=== PATIENT | female | born 1935 | race Hispanic/Latino ===

== ENCOUNTER 2018-04-06 15:10 | Inpatient (IN) | payer MEDICARE, BC ==
[2018-04-06 15:53] VITALS: BMI 28.2
--- NOTE | 2018-04-06 17:04 | RAD ---
Date of service: 04/06/2018 HISTORY: ams complained of sob today COMPARISON: 01/27/2015 FINDINGS: LUNGS: No active pulmonary disease. PLEURA: No pleural effusion or pneumothorax. Nonspecific elevation of the right hemidiaphragm unchanged from prior examination. CARDIOVASCULAR: Normal. OSSEOUS STRUCTURES: No significant abnormalities. VISUALIZED UPPER ABDOMEN: Normal. OTHER FINDINGS: None. IMPRESSION: No active disease.
--- NOTE | 2018-04-06 17:04 | ED PDOC ---
Arrival/HPI - General Chief Complaint: Abdominal Pain Time Seen by Provider: 04/06/18 15:46 Historian: Patient - History of Present Illness Narrative History of Present Illness (Text): 04/06/18 16:02 82 year old female, with past medical history of Alzheimer's disease, presents to the Emergency Department accompanied by son complaining of vaginal cyst since 5 days. As per son, patient experienced an episode of shortness of breath once today with leaning over, which soon resolved spontaneously. Patient currently denies any shortness of breath. Additionally, patient reports sore throat at baseline improved with water intake. Patient denies any changes in voice or difficulty swallowing. Patient denies any fever, chills, night sweats, nausea, vomiting, diarrhea, abdominal pain, vaginal bleeding, vaginal discharge, neck pain, back pain, chest pain, headache, dizziness or any other complaints. Time/Duration: < week (2 days) Symptom Onset: Gradual Symptom Course: Unchanged Activities at Onset: Light Context: Home Past Medical History - Provider Review Nursing Documentation Reviewed: Yes - Infectious Disease Hx of Infectious Diseases: None - Tetanus Immunization Tetanus Immunization: Unknown - Cardiac Hx Cardiac Disorders: No - Pulmonary Hx Respiratory Disorders: No - Neurological Hx Neurological Disorder: Yes Hx Alzheimer's Disease: Yes - HEENT Hx HEENT Disorder: Yes (wears glasses) Other/Comment: has black tooth right lower molar pt sched for root canal january 2015 - Renal Hx Renal Disorder: No - Endocrine/Metabolic Hx Endocrine Disorders: Yes Hx Diabetes Mellitus Type 2: Yes Hx Hypothyroidism: Yes - Hematological/Oncological Hx Blood Disorders: No - Integumentary Hx Dermatological Disorder: Yes Other/Comment: pre skin cancer, buttocks slightly pink - Musculoskeletal/Rheumatological Hx Musculoskeletal Disorders: Yes Hx Falls: Yes - Gastrointestinal Hx Gastrointestinal Disorders: No - Genitourinary/Gynecological Hx Genitourinary Disorders: Yes Hx Incontinence: Yes (at times) - Psychiatric Hx Psychophysiologic Disorder: No Hx Substance Use: No - Surgical History Hx Cholecystectomy: Yes Hx Hysterectomy: Yes Other/Comment: nasal polyps - Anesthesia Hx Anesthesia Reactions: No Hx Malignant Hyperthermia: No - Suicidal Assessment Feels Threatened In Home Enviroment: No Family/Social History - Physician Review Nursing Documentation Reviewed: Yes Family/Social History: No Known Family HX, Unknown Family HX Smoking Status: Never Smoked Hx Alcohol Use: No Hx Substance Use: No Hx Substance Use Treatment: No Allergies/Home Meds Allergies/Adverse Reactions: Allergies No Known Allergies Allergy (Verified 04/06/18 15:58) Home Medications: Home Meds Medication Instructions Recorded Confirmed Memantine [Namenda] 10 mg PO BID 01/10/15 04/06/18 Esomeprazole Magnesium [Nexium] 40 mg PO DAILY 01/23/15 04/06/18 Review of Systems - Physician Review All systems were reviewed & negative as marked: Yes - Review of Systems Constitutional: absent: Fevers ENT: Sore Throat Respiratory: absent: SOB Cardiovascular: absent: Chest Pain Gastrointestinal: absent: Abdominal Pain, Diarrhea, Nausea, Vomiting Genitourinary Female: Other (Vaginal cyst). absent: Vaginal Bleeding, Vaginal Discharge Musculoskeletal: absent: Back Pain, Neck Pain Neurological: absent: Headache, Dizziness Physical Exam Vital Signs Reviewed: Yes Vital Signs Pulse Resp BP Pulse Ox 04/06/18 16:11 73 18 113/59 L 98 Temperature: Afebrile Blood Pressure: Normal Pulse: Regular Respiratory Rate: Normal Appearance: Positive for: Well-Appearing, Non-Toxic, Comfortable Pain Distress: None Mental Status: Positive for: other (Altered) - Systems Exam Head: Present: Atraumatic, Normocephalic Pupils: Present: PERRL Extroacular Muscles: Present: EOMI Conjunctiva: Present: Normal Mouth: Present: Moist Mucous Membranes Neck: Present: Normal Range of Motion Respiratory/Chest: Present: Clear to Auscultation, Good Air Exchange. No: Respiratory Distress, Accessory Muscle Use Cardiovascular: Present: Regular Rate and Rhythm, Normal S1, S2. No: Murmurs Abdomen: No: Tenderness, Distention, Peritoneal Signs Genitourinary/Pelvic Exam: Present: Other (fluctuant lesion to right vulva 2x2cm without eythema. TTP. No crepitus. ) Back: Present: Normal Inspection Upper Extremity: Present: Normal Inspection. No: Cyanosis, Edema Lower Extremity: Present: Normal Inspection. No: Edema Neurological: Present: GCS=15, CN II-XII Intact, Speech Normal, Motor Func Grossly Intact Skin: Present: Warm, Dry, Normal Color. No: Rashes Psychiatric: Present: Other (Altered, not oriented: baseline per son) Medical Decision Making ED Course and Treatment: 04/06/18 16:02 Impression: 82 year old female presents to the Emergency Department complaining of vaginal cyst vs abscess since 2 days. Differential Diagnosis included but are not limited to: Abscess vs Cyst vs UTI Plan: -- CT of Abdomen/Pelvis -- EKG -- Labs -- Chest X-ray -- Urinalysis -- Reassess and disposition Prior Visits: Notes and results from previous visits were reviewed. Progress Notes: Xray unremarkable. Ekg unremarkable. UTI with mild leukocytosis noted on labwork without Sepsis vitals. Given hx of Dementia- will admit to Dr. Cadet's service for UTI and possible delirium coin ciding with dementia. Throughout ER stay pt was noted to be agitated, at baseline agitation per son of chaya. There was no indication of meningeal signs or trauma. Surgery was consulted and per Dr. Cadet's request OBGYN for on- call OB was placed. Bedside US deemed R sided vulva lesion to be cyst vs abscess. No cobblestonening noted on lesion. Non-erythematous. Endorsed to Dr. Cadet Pending CT results, otherwise Pt stable. - RAD Interpretation Radiology Orders: 04/06/18 16:02 ABD & PELVIS IV CONTRAST ONLY [CT] Stat 04/06/18 16:27 CHEST PORTABLE [RAD] Stat - Scribe Statement The provider has reviewed the documentation as recorded by the Scribe Fide Goyal. All medical record entries made by the Scribe were at my direction and personally dictated by me. I have reviewed the chart and agree that the record accurately reflects my personal performance of the history, physical exam, medical decision making, and the department course for this patient. I have also personally directed, reviewed, and agree with the discharge instructions and disposition. Disposition/Present on Arrival - Present on Arrival Any Indicators Present on Arrival: No History of DVT/PE: No History of Uncontrolled Diabetes: No Urinary Catheter: No History of Decub. Ulcer: No History Surgical Site Infection Following: None - Disposition Have Diagnosis and Disposition been Completed?: Yes Diagnosis: UTI (urinary tract infection), Vulvar abscess Disposition: HOSPITALIZED Disposition Time: 18:00 Patient Problems: Current Active Problems Problem Status Onset UTI (urinary tract infection) Acute Vulvar abscess Acute Condition: GOOD
[2018-04-06] MEDS ORDERED: DiphenhydrAMINE 50 mg/ml Inj IVP STA (17:30)
[2018-04-06 17:39] LABS: ALB/GLOB RATIO 1.2 (1.1-1.8); ALBUMIN 3.7 g/dL (3.0-4.8); ALT/SGPT 17 U/L (7-56); AST/SGOT 28 U/L (14-36); BLOOD UREA NITROGEN 7 mg/dL (7-21); CALCIUM 9.5 mg/dL (8.4-10.5); GFR NON-AFRICAN AMERICAN 60
[2018-04-06 17:50] LABS: B-TYPE NATRIURETIC PEPTIDE 345 pg/mL (0-450); TROPONIN I < 0.01 ng/mL
[2018-04-06 17:57] LABS: URINE BILIRUBIN NEGATIVE (NEGATIVE); URINE BLOOD NEGATIVE (NEGATIVE); URINE GLUCOSE (UA) NEGATIVE (NEGATIVE); URINE LEUKOCYTE ESTERASE LARGE Leu/uL (NEGATIVE); URINE PROTEIN NEGATIVE mg/dL (<30 mg/dL); URINE UROBILINOGEN 0.2 E.U./dL (<1 E.U./dL)
[2018-04-06 17:59] LABS: BASO # 0.04 K/mm3 (0.0-2.0); BASO % 0.3 % (0.0-3.0); EOS # 0.8 (0.0-0.7); EOS % 5.8 % (1.5-5.0); GRAN # 10.7 (1.4-6.5); GRAN % 74.4 % (50.0-68.0); HEMOGLOBIN 13.8 g/dL (12.0-16.0); LYMPH # 1.7 (1.2-3.4); LYMPH % 11.5 % (22.0-35.0); MEAN CELL VOLUME 75.4 fl (80.0-105.0); MEAN CORPUSCULAR HEMOGLOBIN 25.7 pg (25.0-35.0); MEAN CORPUSCULAR HGB CONC 34.1 g/dl (31.0-37.0); MEAN PLATELET VOLUME 9.9 fl (7.0-11.0); MONO # 1.2 (0.1-0.6); RBC 5.37 10^6/uL (3.5-6.1); RED CELL DISTRIBUTION WIDTH 15.2 % (11.5-14.5); WHITE BLOOD COUNT 14.4 10^3/ul (4.5-11.0)
[2018-04-06] MEDS ORDERED: Iohexol 350 MG/100 ML VIAL ONE (18:00)
[2018-04-06 18:03] LABS: URINE APPEARANCE CLEAR (CLEAR); URINE COLOR YELLOW (YELLOW)
[2018-04-06 18:12] LABS: URINE AMORPHOUS SEDIMENT TRACE; URINE EPITHELIAL CELLS MANY /hpf (0-5); URINE WBC 15 - 20 /hpf (0-6)
--- NOTE | 2018-04-06 18:30 | CARD ---
APPROVED REPORT Date of service: 04/06/2018 EKG Measurement Heart [id number] <Conclusion> Sinus rhythm with 1st degree AV block Left axis deviation Left ventricular hypertrophy with QRS widening Cannot rule out Septal infarct, age undetermined Abnormal ECG
[2018-04-06] MEDS ORDERED: cefTRIAXone 1 gm 1 GM/100 ML BAG IVPB STA (19:18)
[2018-04-07 09:40] LABS: HEMOGLOBIN 13.8 g/dL (12.0-16.0); MEAN CELL VOLUME 76.1 fl (80.0-105.0); MEAN CORPUSCULAR HEMOGLOBIN 25.8 pg (25.0-35.0); MEAN CORPUSCULAR HGB CONC 33.9 g/dl (31.0-37.0); MEAN PLATELET VOLUME 9.7 fl (7.0-11.0); RBC 5.35 10^6/uL (3.5-6.1); RED CELL DISTRIBUTION WIDTH 15.3 % (11.5-14.5); WHITE BLOOD COUNT 16.2 10^3/ul (4.5-11.0)
[2018-04-07 09:42] LABS: BLOOD UREA NITROGEN 8 mg/dL (7-21); GFR NON-AFRICAN AMERICAN > 60
[2018-04-07] MEDS ORDERED: cefTRIAXone 1 gm 1 GM/100 ML BAG IVPB SCH (10:00)
--- NOTE | 2018-04-07 10:45 | CT ---
Date of service: 04/06/2018 PROCEDURE: CT Abdomen and Pelvis with contrast HISTORY: lower pelvic pain, cyst near vagina COMPARISON: 01/24/2015 TECHNIQUE: Contrast dose: 100 cc of Omni 350 Radiation dose: Total exam DLP = 1261 mGy-cm. This CT exam was performed using one or more of the following dose reduction techniques: Automated exposure control, adjustment of the mA and/or kV according to patient size, and/or use of iterative reconstruction technique. FINDINGS: LOWER THORAX: Unremarkable. LIVER: Unremarkable. No gross lesion or ductal dilatation. GALLBLADDER AND BILE DUCTS: Gallbladder removed PANCREAS: Atrophy and fatty replacement of the pancreas SPLEEN: Unremarkable. ADRENALS: Unremarkable. No mass. KIDNEYS AND URETERS: Unremarkable. No hydronephrosis. No solid mass. VASCULATURE: Unremarkable. No aortic aneurysm. BOWEL: Unremarkable. No obstruction. No gross mural thickening. Mild diverticulosis of the sigmoid colon APPENDIX: Normal appendix. PERITONEUM: Unremarkable. No free fluid. No free air. LYMPH NODES: Unremarkable. No enlarged lymph nodes. BLADDER: Unremarkable. REPRODUCTIVE: Hysterectomy BONES: Mild compression fracture of the inferior endplate of L4. Age uncertain OTHER FINDINGS: The report concurs with the preliminary [facility] report IMPRESSION: No acute intra-abdominal findings
[2018-04-07] MEDS: Sodium Chloride 0.9% 1,000 ML IV SCH (11:10)
[2018-04-07] MEDS: cefTRIAXone 1 gm 1 GM/100 ML BAG IVPB SCH (11:12)
[2018-04-07] MEDS ORDERED: cefTRIAXone 1 gm 1 GM/100 ML BAG IVPB ONE (18:26)
--- NOTE | 2018-04-08 00:07 | HP ---
HISTORY OF PRESENT ILLNESS: The patient is an 82-year-old with a history of Alzheimer's disease, who presents to the emergency room complaining of a vaginal lesion, possible abscess of several days' duration. There is no fever, no chills, no shortness of breath. No chest pain. The patient is admitted to the medical-surgical floor for further evaluation and workup. The patient has received Rocephin 1 g every 24 empirically and a FINANCIAL HEALTH COUNSELOR consultation has been called. PAST MEDICAL HISTORY: Includes type 2 diabetes mellitus, GERD and Alzheimer's disease. The patient also has degenerative joint disease and history of hypothyroidism. PAST SURGICAL HISTORY: The patient has no significant past surgical history. ALLERGIES: NO KNOWN DRUG ALLERGIES. CURRENT MEDICATIONS: Include Namenda 10 mg twice daily and Risperdal 0.25 mg at bedtime. SOCIAL HISTORY: The patient lives with his son. There is no history of tobacco or alcohol use. REVIEW OF SYSTEMS: The patient denies any chest pain, shortness of breath. No nausea, no vomiting, no diarrhea. No vaginal or rectal bleeding. PHYSICAL EXAMINATION: GENERAL: The patient is a well-developed, somewhat obese female in no acute distress. VITAL SIGNS: Temperature 97.6, blood pressure 130/78, pulse 97, respiratory rate 20. HEENT: Head is normocephalic, atraumatic. Pupils equal, round, reactive to light. Extraocular movements intact. NECK: Supple. No thyromegaly. No carotid bruit. No adenopathy. LUNGS: Clear. HEART: Regular rate and rhythm. ABDOMEN: Soft, nontender. Bowel sounds are normoactive. EXTREMITIES: Without cyanosis, clubbing or edema. NEUROLOGIC: The patient is awake and confused without focal sensory or motor deficits. SKIN: Warm and dry. PELVIC: Deferred to FINANCIAL HEALTH COUNSELOR LABORATORY DATA: WBC 16.2, hemoglobin 13.8, hematocrit 40.7. Sodium 132, potassium 4.2, chloride 96, CO2 of 29, BUN 8, creatinine 0.8, glucose 137. Chest x-ray shows no active disease. CT scan of the abdomen and pelvis was negative. IMPRESSION: 1. Possible vulvar abscess. 2. Type 2 diabetes mellitus. 3. Gastroesophageal reflux disease. 4. Alzheimer's disease. PLAN: The patient is admitted to the medical-surgical floor. We will obtain FINANCIAL HEALTH COUNSELOR consultation. The patient has been started on empiric IV antibiotics with Rocephin 1 g every 24 hours. Social work for discharge planning. NANCY Edwards MD
[2018-04-08 07:57] LABS: HEMOGLOBIN 14.2 g/dL (12.0-16.0); MEAN CELL VOLUME 75.8 fl (80.0-105.0); MEAN CORPUSCULAR HEMOGLOBIN 25.4 pg (25.0-35.0); MEAN CORPUSCULAR HGB CONC 33.5 g/dl (31.0-37.0); MEAN PLATELET VOLUME 9.6 fl (7.0-11.0); RBC 5.59 10^6/uL (3.5-6.1); RED CELL DISTRIBUTION WIDTH 15.3 % (11.5-14.5); WHITE BLOOD COUNT 13.8 10^3/ul (4.5-11.0)
[2018-04-08 08:08] LABS: ALB/GLOB RATIO 1.1 (1.1-1.8); ALBUMIN 3.8 g/dL (3.0-4.8); ALT/SGPT 22 U/L (7-56); AST/SGOT 27 U/L (14-36); BLOOD UREA NITROGEN 11 mg/dL (7-21); CALCIUM 9.2 mg/dL (8.4-10.5); GFR NON-AFRICAN AMERICAN > 60
--- NOTE | 2018-04-08 08:38 | CP.PCM.CON ---
<Tressa Gruber - Last Filed: 04/08/18 13:38> History of Present Illness - History of Present Illness History of Present Illness: PGY-3 Resident ID consult note for Dr. Kessler. Reason for consult: Leukocytosis Patient is an 82 y/o female with PMHx of DM, GERD, Alzheimer, hypothyroidism, and DJD who was brought in by her son due growth around the right vulva. Patient is severely demented and confused, thus history was obtained from her son. As per son, he first noticed the lesion a week ago, though it was a pimple. Patient's daughter whom is an APPLIED STATISTICIAN was concerned the lesion might be an abscess thus contacted PMD whom suggested to bring patient to the ED. Otherwise no fever, or chills, no nausea, vomiting or diarrhea. PMhx: DM, GERD, Alzheimer, hypothyroidism, and DJD, PSHx: hysterectomy, cholecystectomy FMHx: non contributory Social: denies alcohol, tobacco, and illicit drug Allergy: nkda Home meds: as per chart. Review of Systems - Review of Systems Systems not reviewed;Unavailable: Dementia Past Patient History - Infectious Disease Hx of Infectious Diseases: None - Tetanus Immunizations Tetanus Immunization: Unknown - Past Social History Smoking Status: Never Smoked Alcohol: None Drugs: Denies Home Situation {Lives}: With Family - CARDIAC Hx Cardiac Disorders: No - PULMONARY Hx Respiratory Disorders: No - NEUROLOGICAL Hx Neurological Disorder: Yes Hx Alzheimer's Disease: Yes - HEENT Hx HEENT Problems: Yes (wears glasses) Other/Comment: has black tooth right lower molar pt sched for root canal january 2015 - RENAL Hx Chronic Kidney Disease: No - ENDOCRINE/METABOLIC Hx Diabetes Mellitus Type 2: Yes - HEMATOLOGICAL/ONCOLOGICAL Hx Blood Disorders: No - INTEGUMENTARY Hx Dermatological Problems: Yes Other/Comment: pre skin cancer, buttocks slightly pink - MUSCULOSKELETAL/RHEUMATOLOGICAL Hx Musculoskeletal Disorders: Yes Hx Falls: Yes - GASTROINTESTINAL Hx Gastrointestinal Disorders: No - GENITOURINARY/GYNECOLOGICAL Hx Genitourinary Disorders: Yes Hx Incontinence: Yes (at times) - PSYCHIATRIC Hx Psychophysiologic Disorder: No Hx Substance Use: No - SURGICAL HISTORY Hx Cholecystectomy: Yes Hx Hysterectomy: Yes Other/Comment: nasal polyps - ANESTHESIA Hx Anesthesia Reactions: No Hx Malignant Hyperthermia: No Meds Allergies/Adverse Reactions: Allergies Allergy/AdvReac Type Severity Reaction Status Date / Time No Known Allergies Allergy Verified 04/06/18 15:58 - Medications Medications: Current Medications Sodium Chloride (Sodium Chloride 0.9%) 1,000 mls @ 80 mls/hr IV .[id number] [facility] Last Admin: 04/07/18 11:10 Dose: 80 mls/hr Ceftriaxone Sodium (Rocephin 1 Gram Ivpb) 1 gm in 100 mls @ 100 mls/hr IVPB DAILY [facility]; Protocol Last Admin: 04/07/18 11:12 Dose: 100 mls/hr Lorazepam (Ativan) 0.5 mg IVP Q6H PRN; Protocol PRN Reason: Anxiety Last Admin: 04/07/18 20:48 Dose: 0.5 mg Memantine (Namenda) 10 mg PO BID [facility] Last Admin: 04/07/18 17:03 Dose: 10 mg Risperidone (Risperdal Tab) 0.25 mg PO BID [facility]; Protocol Last Admin: 04/07/18 17:04 Dose: 0.25 mg Physical Exam - Constitutional Appears: No Acute Distress, Confused, Chronically Ill - Head Exam Head Exam: ATRAUMATIC, NORMAL INSPECTION, NORMOCEPHALIC - Eye Exam Eye Exam: Normal appearance - ENT Exam ENT Exam: Mucous Membranes Moist - Neck Exam Neck exam: Positive for: Normal Inspection - Respiratory Exam Respiratory Exam: Clear to Auscultation Bilateral, NORMAL BREATHING PATTERN. absent: Rales, Rhonchi, Wheezes, Respiratory Distress, Stridor - Cardiovascular Exam Cardiovascular Exam: REGULAR RHYTHM, +S1, +S2. absent: Systolic Murmur - GI/Abdominal Exam GI & Abdominal Exam: Normal Bowel Sounds, Soft. absent: Distended, Firm, Guarding, Rebound, Rigid, Tenderness - Extremities Exam Extremities exam: Positive for: normal inspection - Back Exam Back exam: absent: tenderness - Neurological Exam Neurological exam: Alert, Oriented x3 - Psychiatric Exam Psychiatric exam: Agitated - Skin Skin Exam: Warm Additional comments: Right vulvar with non fluctuant mass like lesion, no edema. No erythema noted. Results - Vital Signs Recent Vital Signs: Last Vital Signs Temp 97.8 F 04/07/18 22:25 Pulse 96 H 04/07/18 22:25 Resp 20 04/07/18 22:25 BP 144/69 04/07/18 22:25 Pulse Ox 97 04/07/18 22:25 - Labs Result Diagrams: 04/08/18 07:15 04/08/18 07:15 Labs: Laboratory Results - last 24 hr 04/07/18 04/07/18 04/07/18 09:20 09:20 10:49 WBC 16.2 H RBC 5.35 Hgb 13.8 Hct 40.7 MCV 76.1 L MCH 25.8 MCHC 33.9 RDW 15.3 H Plt Count 295 MPV 9.7 Sodium 132 Potassium 4.2 Chloride 96 L Carbon Dioxide 29 Anion Gap 12 BUN 8 Creatinine 0.8 Est GFR ( Amer) > 60 Est GFR (Non-Af Amer) > 60 POC Glucose (mg/dL) 137 H Random Glucose 122 H Calcium 9.0 Total Bilirubin AST ALT Alkaline Phosphatase Total Protein Albumin Globulin Albumin/Globulin Ratio 04/08/18 04/08/18 07:15 07:15 WBC 13.8 H RBC 5.59 Hgb 14.2 Hct 42.4 MCV 75.8 L MCH 25.4 MCHC 33.5 RDW 15.3 H Plt Count 303 MPV 9.6 Sodium 135 Potassium 3.9 Chloride 98 Carbon Dioxide 28 Anion Gap 13 BUN 11 Creatinine 0.7 Est GFR ( Amer) > 60 Est GFR (Non-Af Amer) > 60 POC Glucose (mg/dL) Random Glucose 133 H Calcium 9.2 Total Bilirubin 0.8 AST 27 ALT 22 Alkaline Phosphatase 83 Total Protein 7.2 Albumin 3.8 Globulin 3.4 Albumin/Globulin Ratio 1.1 Assessment & Plan - Assessment and Plan (Free Text) Assessment: SIRS Right valvular growth likely bartholin gland cyst, r/o an abscess UA with UTI, however patient is incontinent, and bed bound DM, GERD, Alzheimer, hypothyroidism, DJD, hysterectomy, cholecystectomy Plan: Leukocytosis trending down, afebrile, and pt was tachy. Will continue with Rocephin and add vanco 1 gm q12. Follow up with urine and blood cultures. Work Ticket Distributor evaluation. Continue with the rest of the medical management as per PMD. Patient seen, examined and case discussed with Dr. Kessler. - Date & Time Date: 04/08/18 Time: 10:30 <Matt Kessler - Last Filed: 04/08/18 20:11> Meds - Medications Medications: Current Medications Sodium Chloride (Sodium Chloride 0.9%) 1,000 mls @ 80 mls/hr IV .[id number] [facility] Last Admin: 04/07/18 11:10 Dose: 80 mls/hr Ceftriaxone Sodium (Rocephin 1 Gram Ivpb) 1 gm in 100 mls @ 100 mls/hr IVPB DAILY [facility]; Protocol Last Admin: 04/08/18 16:15 Dose: 100 mls/hr Vancomycin HCl (Vancomycin 1gm) 1 gm in 250 mls @ 167 mls/hr IVPB Q12H [facility]; Protocol Last Admin: 04/08/18 14:06 Dose: 167 mls/hr Lorazepam (Ativan) 0.5 mg IVP Q6H PRN; Protocol PRN Reason: Anxiety Last Admin: 04/08/18 17:53 Dose: 0.5 mg Memantine (Namenda) 10 mg PO BID [facility] Last Admin: 04/08/18 17:53 Dose: 10 mg Risperidone (Risperdal Tab) 0.25 mg PO BID [facility]; Protocol Last Admin: 04/08/18 17:52 Dose: 0.25 mg Risperidone (Risperdal Tab) 0.25 mg PO HS [facility]; Protocol Results - Vital Signs Recent Vital Signs: Last Vital Signs Temp 97.5 F L 04/08/18 14:00 Pulse 87 04/08/18 14:00 Resp 20 04/08/18 14:00 BP 145/86 04/08/18 14:00 Pulse Ox 97 04/08/18 14:00 - Labs Result Diagrams: 04/08/18 07:15 04/08/18 07:15 Labs: Laboratory Results - last 24 hr 04/08/18 04/08/18 07:15 07:15 WBC 13.8 H RBC 5.59 Hgb 14.2 Hct 42.4 MCV 75.8 L MCH 25.4 MCHC 33.5 RDW 15.3 H Plt Count 303 MPV 9.6 Sodium 135 Potassium 3.9 Chloride 98 Carbon Dioxide 28 Anion Gap 13 BUN 11 Creatinine 0.7 Est GFR ( Amer) > 60 Est GFR (Non-Af Amer) > 60 Random Glucose 133 H Calcium 9.2 Total Bilirubin 0.8 AST 27 ALT 22 Alkaline Phosphatase 83 Total Protein 7.2 Albumin 3.8 Globulin 3.4 Albumin/Globulin Ratio 1.1 Assessment & Plan - Assessment and Plan (Free Text) Plan: Infectious Diseases Attending Physician Addendum Patient seen, examined, discussed with medical researcher. I have reviewed the pertinent clinical information. I agree with the above findings, assessment and plan and in addition, patient with probable vulvar abscess/infected Bartholin gland's cyst. Follow up Work Ticket Distributor evaluation and plans. We have started the patient on Vancomycin and Rocephin.
--- NOTE | 2018-04-08 09:28 | CP.PCM.PN ---
Subjective - Date & Time of Evaluation Date of Evaluation: 04/08/18 Time of Evaluation: 09:15 - Subjective Subjective: agitated, confused Objective - Vital Signs/Intake and Output Vital Signs (last 24 hours): Temp Pulse Resp BP Pulse Ox 98.2 F 96 H 20 139/88 95 04/08/18 06:00 04/08/18 06:00 04/08/18 06:00 04/08/18 06:00 04/08/18 06:00 Intake and Output: 04/08/18 04/08/18 06:59 18:59 Intake Total 1200 Balance 1200 - Medications Medications: Current Medications Sodium Chloride (Sodium Chloride 0.9%) 1,000 mls @ 80 mls/hr IV .[id number] [facility] Last Admin: 04/07/18 11:10 Dose: 80 mls/hr Ceftriaxone Sodium (Rocephin 1 Gram Ivpb) 1 gm in 100 mls @ 100 mls/hr IVPB DAILY [facility]; Protocol Last Admin: 04/07/18 11:12 Dose: 100 mls/hr Lorazepam (Ativan) 1 mg IVP Q6H PRN; Protocol PRN Reason: Anxiety Memantine (Namenda) 10 mg PO BID [facility] Last Admin: 04/07/18 17:03 Dose: 10 mg Risperidone (Risperdal Tab) 0.25 mg PO BID [facility]; Protocol Last Admin: 04/07/18 17:04 Dose: 0.25 mg - Labs Labs: 04/08/18 07:15 04/08/18 07:15 - Respiratory Exam Respiratory Exam: Clear to Ausculation Bilateral, NORMAL BREATHING PATTERN - Cardiovascular Exam Cardiovascular Exam: REGULAR RHYTHM - GI/Abdominal Exam GI & Abdominal Exam: Soft, Normal Bowel Sounds - Extremities Exam Extremities Exam: Normal Inspection - Neurological Exam Neurological Exam: Altered - Psychiatric Exam Psychiatric exam: Agitated - Skin Skin Exam: Dry, Warm Assessment and Plan (1) Vulvar abscess Status: Acute (2) Alzheimer's dementia Status: Chronic - Assessment and Plan (Free Text) Plan: continue IV Abx, 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
--- NOTE | 2018-04-08 13:08 | CP.PCM.CON ---
History of Present Illness - History of Present Illness History of Present Illness: 82-year-old female with history of dementia brought to emergency department yesterday due to 1 week history of patient's son noticing a cyst on vulva. Due to patient's cognitive capacity at this time, it is difficult for patient to co mmunicate her symptoms. Due to this, patient's son brought her to hospital for evaluation. Past Patient History - Infectious Disease Hx of Infectious Diseases: None - Tetanus Immunizations Tetanus Immunization: Unknown - Past Social History Smoking Status: Never Smoked - CARDIAC Hx Cardiac Disorders: No - PULMONARY Hx Respiratory Disorders: No - NEUROLOGICAL Hx Neurological Disorder: Yes Hx Alzheimer's Disease: Yes - HEENT Hx HEENT Problems: Yes (wears glasses) Other/Comment: has black tooth right lower molar pt sched for root canal january 2015 - RENAL Hx Chronic Kidney Disease: No - ENDOCRINE/METABOLIC Hx Diabetes Mellitus Type 2: Yes - HEMATOLOGICAL/ONCOLOGICAL Hx Blood Disorders: No - INTEGUMENTARY Hx Dermatological Problems: Yes Other/Comment: pre skin cancer, buttocks slightly pink - MUSCULOSKELETAL/RHEUMATOLOGICAL Hx Musculoskeletal Disorders: Yes Hx Falls: Yes - GASTROINTESTINAL Hx Gastrointestinal Disorders: No - GENITOURINARY/GYNECOLOGICAL Hx Genitourinary Disorders: Yes Hx Incontinence: Yes (at times) - PSYCHIATRIC Hx Psychophysiologic Disorder: No Hx Substance Use: No - SURGICAL HISTORY Hx Cholecystectomy: Yes Hx Hysterectomy: Yes Other/Comment: nasal polyps - ANESTHESIA Hx Anesthesia Reactions: No Hx Malignant Hyperthermia: No Meds Allergies/Adverse Reactions: Allergies Allergy/AdvReac Type Severity Reaction Status Date / Time No Known Allergies Allergy Verified 04/06/18 15:58 - Medications Medications: Current Medications Sodium Chloride (Sodium Chloride 0.9%) 1,000 mls @ 80 mls/hr IV .[id number] [facility] Last Admin: 04/07/18 11:10 Dose: 80 mls/hr Ceftriaxone Sodium (Rocephin 1 Gram Ivpb) 1 gm in 100 mls @ 100 mls/hr IVPB DAILY [facility]; Protocol Last Admin: 04/07/18 11:12 Dose: 100 mls/hr Vancomycin HCl (Vancomycin 1gm) 1 gm in 250 mls @ 167 mls/hr IVPB Q12H [facility]; Protocol Lorazepam (Ativan) 1 mg IVP Q6H PRN; Protocol PRN Reason: Anxiety Last Admin: 04/08/18 09:40 Dose: 1 mg Memantine (Namenda) 10 mg PO BID [facility] Last Admin: 04/08/18 12:13 Dose: Not Given Risperidone (Risperdal Tab) 0.25 mg PO BID [facility]; Protocol Last Admin: 04/08/18 12:13 Dose: Not Given Physical Exam - Constitutional Appears: No Acute Distress - Head Exam Head Exam: NORMAL INSPECTION - GI/Abdominal Exam GI & Abdominal Exam: Soft. absent: Distended, Tenderness - Exam Additional comments: Approximately 1.5 cm raised area on right vulvar region consistent with sebaceous cyst. Area is nontender. No erythema, no swelling, no induration. Results - Vital Signs Recent Vital Signs: Last Vital Signs Temp 98.2 F 04/08/18 06:00 Pulse 96 H 04/08/18 06:00 Resp 20 04/08/18 06:00 BP 139/88 04/08/18 06:00 Pulse Ox 95 04/08/18 06:00 - Labs Result Diagrams: 04/08/18 07:15 04/08/18 07:15 Labs: Laboratory Results - last 24 hr 04/08/18 04/08/18 07:15 07:15 WBC 13.8 H RBC 5.59 Hgb 14.2 Hct 42.4 MCV 75.8 L MCH 25.4 MCHC 33.5 RDW 15.3 H Plt Count 303 MPV 9.6 Sodium 135 Potassium 3.9 Chloride 98 Carbon Dioxide 28 Anion Gap 13 BUN 11 Creatinine 0.7 Est GFR ( Amer) > 60 Est GFR (Non-Af Amer) > 60 Random Glucose 133 H Calcium 9.2 Total Bilirubin 0.8 AST 27 ALT 22 Alkaline Phosphatase 83 Total Protein 7.2 Albumin 3.8 Globulin 3.4 Albumin/Globulin Ratio 1.1 Assessment & Plan - Assessment and Plan (Free Text) Assessment: 1. Urinary tract infection 2. Sebaceous cyst on right vulvar area Plan: 1. Continue antibiotics for urinary tract infection. Consider sending urine culture. 2. No indication for intervention at this time for sebaceous cyst. 3. Patient's son was in room. I discussed plan with with him and all questions were answered. - Date & Time Date: 04/08/18 Time: 13:11
[2018-04-08] MEDS: Vancomycin 1gm in NS 250ml 1 GM/250 ML BAG IVPB SCH ×2 (14:06→23:44)
[2018-04-08] MEDS: cefTRIAXone 1 gm 1 GM/100 ML BAG IVPB SCH (16:15)
--- NOTE | 2018-04-08 21:15 | CON ---
DATE: 04/08/2018 HISTORY OF PRESENT ILLNESS: In short, the patient is 82-year-old female, reported history of Alzheimer's dementia. The patient was admitted on the medical site for change in mental status. The patient was found to have urinary tract infection and delirium stage. Psych consult was called for evaluation of periods of agitation and psychotic symptoms. This program writer attempted to speak to the patient today, but the patient is deeply sleeping. The patient's son who reported that he has power of state's attorney next to the patient and this program writer did not disclose any information, but obtained collateral information from the son. As per son, the patient was diagnosed with Alzheimer's dementia for past 9 years and he is primary caregiver for the patient. The patient has episodes of confusion and screaming and yelling seeing people who are not there alternating with the days when the patient is calm, cooperative and very pleasant. The patient's son reported that the patient was complaining of some discomfort in the genital area that is why he brought her to the hospital. The patient is retired Special aid teacher, Master degree in Special Education. The patient's son reported that at present moment the patient is on right doses of medications, Risperdal 0.25 mg twice a day which was prescribed by Dr. Aj Cadet. VITAL SIGNS: Reviewed. Temperature 97.5, pulse is 87, blood pressure 145/86, respiration 26 and saturation is 97. MEDICATIONS: Reviewed. The patient is on Rocephin, Ativan 0.5 mg IV push every 6 hour p.r.n. for anxiety, Namenda 10 mg twice a day, Risperdal 0.25 mg twice a day and this program writer implemented 0.25 mg at the nighttime. The patient is on sodium chloride as well as vancomycin. LABORATORY DATA: Reviewed. WBC cells elevated 13.8. Chemistry reviewed. Urinalysis reviewed. Patient positive for leukocyte esterase as well as urine nitrites. Microbiology reviewed, gram-negative rods. MENTAL STATUS EXAM: This program writer was not able to assess because the patient is deeply sleeping. IMPRESSION: The patient has history of Alzheimer's dementia and presently, the patient is in delirium stage. PLAN: I agree with Ativan 0.5 mg every 6 hours p.r.n. for anxiety. We will increase Risperdal frequency instead of twice a day to three times a day 0.25 mg for psychosis and agitation. Collaterals were obtained from the son. Son will be bringing official paper to the hospital. Meanwhile, continue current management. Continue current medication. We will follow up and advise accordingly. Paola Nova MD
--- NOTE | 2018-04-09 09:04 | CP.PCM.PN ---
Subjective - Date & Time of Evaluation Date of Evaluation: 04/09/18 Time of Evaluation: 08:50 - Subjective Subjective: lethargic, arousable, confused Objective - Vital Signs/Intake and Output Vital Signs (last 24 hours): Temp Pulse Resp BP Pulse Ox 97.4 F L 109 H 19 130/81 99 04/08/18 22:00 04/08/18 22:00 04/08/18 22:00 04/08/18 22:00 04/08/18 22:00 - Medications Medications: Current Medications Sodium Chloride (Sodium Chloride 0.9%) 1,000 mls @ 80 mls/hr IV .[id number] [facility] Last Admin: 04/07/18 11:10 Dose: 80 mls/hr Ceftriaxone Sodium (Rocephin 1 Gram Ivpb) 1 gm in 100 mls @ 100 mls/hr IVPB DAILY [facility]; Protocol Last Admin: 04/08/18 16:15 Dose: 100 mls/hr Vancomycin HCl (Vancomycin 1gm) 1 gm in 250 mls @ 167 mls/hr IVPB Q12H [facility]; Protocol Last Admin: 04/08/18 23:44 Dose: 167 mls/hr Lorazepam (Ativan) 0.5 mg IVP Q6H PRN; Protocol PRN Reason: Anxiety Last Admin: 04/09/18 00:28 Dose: 0.5 mg Memantine (Namenda) 10 mg PO BID [facility] Last Admin: 04/08/18 17:53 Dose: 10 mg Risperidone (Risperdal Tab) 0.25 mg PO BID [facility]; Protocol Last Admin: 04/08/18 17:52 Dose: 0.25 mg Risperidone (Risperdal Tab) 0.25 mg PO HS [facility]; Protocol Last Admin: 04/08/18 21:04 Dose: 0.25 mg - Labs Labs: 04/08/18 07:15 04/08/18 07:15 - Respiratory Exam Respiratory Exam: Rhonchi - Cardiovascular Exam Cardiovascular Exam: REGULAR RHYTHM - GI/Abdominal Exam GI & Abdominal Exam: Soft, Normal Bowel Sounds - Extremities Exam Extremities Exam: Normal Inspection - Neurological Exam Neurological Exam: Altered - Skin Skin Exam: Dry, Warm Assessment and Plan (1) Vulvar abscess Status: Acute (2) Alzheimer's dementia Status: Chronic - Assessment and Plan (Free Text) Plan: continue present tx, retail sales director follow-up, SW for DC planning
--- NOTE | 2018-04-09 11:16 | CP.PCM.PN ---
<AllynTressa - Last Filed: 04/09/18 12:54> Subjective - Date & Time of Evaluation Date of Evaluation: 04/09/18 Time of Evaluation: 08:50 - Subjective Subjective: PGY-3 Resident ID progress note for Dr. Kessler: Patient's son at the bed side. Patient soundly as sleep. No acute events, no fever. Was evaluated by bonding molder yesterday. Objective - Vital Signs/Intake and Output Vital Signs (last 24 hours): Temp Pulse Resp BP Pulse Ox 98 F 99 H 20 164/96 H 99 04/09/18 06:00 04/09/18 06:00 04/09/18 06:00 04/09/18 06:00 04/09/18 06:00 - Medications Medications: Current Medications Sodium Chloride (Sodium Chloride 0.9%) 1,000 mls @ 80 mls/hr IV .[id number] [facility] Last Admin: 04/07/18 11:10 Dose: 80 mls/hr Ceftriaxone Sodium (Rocephin 1 Gram Ivpb) 1 gm in 100 mls @ 100 mls/hr IVPB DAILY [facility]; Protocol Last Admin: 04/08/18 16:15 Dose: 100 mls/hr Vancomycin HCl (Vancomycin 1gm) 1 gm in 250 mls @ 167 mls/hr IVPB Q12H [facility]; Protocol Last Admin: 04/08/18 23:44 Dose: 167 mls/hr Lorazepam (Ativan) 0.5 mg IVP Q8H PRN; Protocol PRN Reason: Anxiety Memantine (Namenda) 10 mg PO BID [facility] Last Admin: 04/08/18 17:53 Dose: 10 mg Risperidone (Risperdal Tab) 0.25 mg PO BID [facility]; Protocol Last Admin: 04/08/18 17:52 Dose: 0.25 mg Risperidone (Risperdal Tab) 0.25 mg PO HS [facility]; Protocol Last Admin: 04/08/18 21:04 Dose: 0.25 mg - Labs Labs: 04/08/18 07:15 04/08/18 07:15 - Constitutional Appears: No Acute Distress, Chronically Ill - Head Exam Head Exam: ATRAUMATIC, NORMAL INSPECTION, NORMOCEPHALIC - ENT Exam ENT Exam: Mucous Membranes Moist - Respiratory Exam Respiratory Exam: Clear to Ausculation Bilateral, NORMAL BREATHING PATTERN. absent: Rales, Rhonchi, Wheezes, Respiratory Distress, Stridor - Cardiovascular Exam Cardiovascular Exam: REGULAR RHYTHM, +S1, +S2 - GI/Abdominal Exam GI & Abdominal Exam: Soft, Normal Bowel Sounds. absent: Firm, Guarding, Rigid, Tenderness - Extremities Exam Extremities Exam: Normal Inspection - Neurological Exam Additional comments: Sleepy and drowsy - Psychiatric Exam Psychiatric exam: Normal Affect - Skin Skin Exam: Dry, Warm Assessment and Plan - Assessment and Plan (Free Text) Assessment: Patient is an 82 y/o with Proble right valvular infected bartholin/sebaceous gland cyst r/o abscess UA with UTI, however patient is incontinent, and bed bound DM, GERD, Alzheimer, hypothyroidism, DJD, hysterectomy, cholecystectomy Plan: Leukocytosis trending down, afebrile. urine culture with e coli. Will continue with Rocephin and vanco 1 gm q12, will obtain vanco through. [facility] recommendations. Continue with the rest of medical management as per primary. Patient seen, examined and case discussed with Dr. Kessler. <Matt Kessler - Last Filed: 04/09/18 22:21> Objective - Vital Signs/Intake and Output Vital Signs (last 24 hours): Temp Pulse Resp BP Pulse Ox 98.7 F 96 H 22 166/91 H 98 04/09/18 21:50 04/09/18 21:50 04/09/18 21:50 04/09/18 21:50 04/09/18 21:50 Intake and Output: 04/09/18 04/10/18 18:59 06:59 Intake Total 240 Balance 240 - Medications Medications: Current Medications Sodium Chloride (Sodium Chloride 0.9%) 1,000 mls @ 80 mls/hr IV .[id number] [facility] Last Admin: 04/07/18 11:10 Dose: 80 mls/hr Ceftriaxone Sodium (Rocephin 1 Gram Ivpb) 1 gm in 100 mls @ 100 mls/hr IVPB DAILY [facility]; Protocol Last Admin: 04/09/18 11:56 Dose: 100 mls/hr Vancomycin HCl (Vancomycin 1gm) 1 gm in 250 mls @ 167 mls/hr IVPB Q12H [facility]; Protocol Last Admin: 04/09/18 15:30 Dose: 167 mls/hr Lorazepam (Ativan) 0.5 mg IVP Q8H PRN; Protocol PRN Reason: Anxiety Last Admin: 04/09/18 12:53 Dose: 0.5 mg Memantine (Namenda) 10 mg PO BID [facility] Last Admin: 04/09/18 11:56 Dose: 10 mg Risperidone (Risperdal Tab) 0.5 mg PO [facility]; Protocol Last Admin: 04/09/18 21:46 Dose: 0.5 mg - Labs Labs: 04/08/18 07:15 04/08/18 07:15 Assessment and Plan - Assessment and Plan (Free Text) Plan: Infectious Diseases Attending Physician Addendum Patient seen, examined, discussed with dental assistant medical assistant. I have reviewed the pertinent clinical information. I agree with the above findings, assessment and plan and in addition, patient with probable infected vulvar cyst. Reviewed Jigger Crown Pouncing Machine Operator evaluation and plans. continue Vancomycin and Rocephin.
[2018-04-09] MEDS: cefTRIAXone 1 gm 1 GM/100 ML BAG IVPB SCH (11:56)
[2018-04-09] MEDS: Vancomycin 1gm in NS 250ml 1 GM/250 ML BAG IVPB SCH (15:30)
--- NOTE | 2018-04-09 18:03 | PN ---
DATE: 04/09/2018 FOLLOWUP NOTE SUBJECTIVE: The patient was followed up today. The patient presented to be sleepy. As per nursing report, the patient was agitated earlier. The patient seems to be restless overnight, was screaming. Medication needs to be adjusted. This consumer loan underwriter would suggest to increase the dose of Risperdal to 0.5 mg twice a day at the morning time and at the nighttime. In regards of vital signs, vital signs seems to be stable. Temperature 98, pulse is 99, blood pressure 164/96, respirations 20, oxygen saturation is 99. Medical team decreased the dose of Ativan in order to avoid deep sedation and avoid confusion on benzodiazepine for delirious and demented patient, agree with that. Labs reviewed. The patient still has leukocytosis, but is going down. Chemistry reviewed. Urinalysis reviewed. MENTAL STATUS EXAMINATION: The patient is deeply sleeping. Occasional moaning and pointing on her suprapubic area. Collateral information was obtained from the power of information resources director, the patient's son yesterday. Discussed treatment plan. IMPRESSION: Most likely, the patient is in delirium stage due to urinary tract infection. The patient has long history of dementia with behavioral disturbances. PLAN: Risperdal was increased to 0.5 mg twice a day at the morning time and at the nighttime. Ativan was decreased by medical team to three times a day 0.5 mg, agree with that. Namenda should be continued. Please continue antibiotics. We will follow up and advise accordingly. Thank you very much for letting me participate in the care of your patient. aPola Nova MD
[2018-04-10] MEDS: Vancomycin 1gm in NS 250ml 1 GM/250 ML BAG IVPB SCH (01:05)
[2018-04-10] MEDS: Sodium Chloride 0.9% 1,000 ML IV SCH (06:21)
[2018-04-10] MEDS ORDERED: OLANZapine 5 mg Disintegrating Tab PO STA (09:01)
[2018-04-10] MEDS: cefTRIAXone 1 gm 1 GM/100 ML BAG IVPB SCH (10:45)
--- NOTE | 2018-04-10 11:29 | PN ---
DATE: 04/10/2018 FOLLOWUP NOTE SUBJECTIVE: In short, the patient is an 82-year-old female with history of Alzheimer's dementia. Presently, the patient is in delirium stage, hyperactive. The patient was seen for the past 2 days. Discussed with the patient's power of produce clerk treatment plan. This specifications writer increased the dose of Risperdal yesterday to 0.5 mg twice a day. The patient still has episodes of agitation, screaming out loud. The patient is not able to participate in a meaningful conversation. The patient is very confused and agitated. This specifications writer gave stat dose of Zyprexa Zydis 5 mg while this specifications writer rounded because the patient was screaming on top of her lungs, was interrupting therapeutic milieu of the unit. So far, no effect. Vital signs are stable. Temperature 98.6, pulse is 112, blood pressure 167/109, respirations 20, oxygen saturation is 96. Medications reviewed. The patient is on Rocephin, Ativan 0.5 mg IV push every 8 hours p.r.n. for anxiety. The patient is on Namenda. Risperdal was increased yesterday 0.5 mg twice a day. The patient is on sodium chloride and vancomycin. Stat dose of Zyprexa Zydis was given today. Labs reviewed, most recent was on 04/08/2018. MENTAL STATUS EXAMINATION: No meaningful conversation is possible for the patient. The patient is screaming out loudly with eyes closed. As per staff, the patient was trying to climb and also appeared to be restless. Insight and judgment seems to be severely impaired. Impulses are unpredictable. IMPRESSION: Delirium due to urinary tract infection, also the patient has history of dementia with behavioral disturbances. PLAN: Risperdal 0.5 mg twice a day was increased yesterday. Ativan as needed. This specifications writer has impression that when the patient will be doing better from the medical standpoint, her mental status will be improving. This specifications writer does not want to be very aggressive in regards of benzodiazepines and antipsychotic medications. Treatment plan was discussed with power of produce clerk 2 days ago. Thank you very much for letting me participate in the care of your patient. Psychiatric team will follow up the patient every other day. Paola Nova MD
--- NOTE | 2018-04-10 11:31 | CP.PCM.PN ---
Subjective - Date & Time of Evaluation Date of Evaluation: 04/10/18 Time of Evaluation: 09:45 - Subjective Subjective: agitated, confused, resposive to verbal commands Objective - Vital Signs/Intake and Output Vital Signs (last 24 hours): Temp Pulse Resp BP Pulse Ox 98.6 F 112 H 20 167/109 H 96 04/10/18 06:00 04/10/18 06:00 04/10/18 06:00 04/10/18 06:00 04/10/18 06:00 Intake and Output: 04/10/18 04/10/18 06:59 18:59 Intake Total 240 Balance 240 - Medications Medications: Current Medications Ciprofloxacin (Cipro) 250 mg PO Q12 [facility]; Protocol Stop: 04/11/18 11:11 Lorazepam (Ativan) 0.5 mg IVP Q8H PRN; Protocol PRN Reason: Anxiety Last Admin: 04/10/18 05:28 Dose: 0.5 mg Memantine (Namenda) 10 mg PO BID [facility] Last Admin: 04/10/18 10:35 Dose: 10 mg Risperidone (Risperdal Tab) 0.5 mg PO [facility]; Protocol Last Admin: 04/10/18 10:37 Dose: 0.5 mg - Labs Labs: 04/08/18 07:15 04/08/18 07:15 - Respiratory Exam Respiratory Exam: Clear to Ausculation Bilateral, NORMAL BREATHING PATTERN - Cardiovascular Exam Cardiovascular Exam: REGULAR RHYTHM - GI/Abdominal Exam GI & Abdominal Exam: Soft, Normal Bowel Sounds - Extremities Exam Extremities Exam: Normal Inspection - Neurological Exam Neurological Exam: Altered - Psychiatric Exam Psychiatric exam: Agitated - Skin Skin Exam: Dry, Warm Assessment and Plan (1) Vulvar abscess Status: Resolved (2) Alzheimer's dementia Status: Chronic (3) UTI (urinary tract infection) Status: Acute - Assessment and Plan (Free Text) Plan: DC IV Abx, Cipro 250 PO bid, psych follow-up, for disposition
[2018-04-10] MEDS ORDERED: Midazolam 2 MG/2 ML VIAL ONE (13:31)
[2018-04-10] MEDS ORDERED: Lidocaine 2% PF (10 ml) Amp ONE (13:31)
[2018-04-10] MEDS ORDERED: Iohexol 350mgl/ml 50 ML ONE (13:33)
[2018-04-10] MEDS ORDERED: Iodixanol 320 MG/ML 200 ML BOTTLE IV ONE (13:33)
[2018-04-10] MEDS ORDERED: Iodixanol 320 MG/ML 100 ML BOTTLE IV ONE (13:33)
[2018-04-10] MEDS ORDERED: Heparin 0 ML IV ONE (13:34)
--- NOTE | 2018-04-10 23:34 | CP.PCM.PN ---
Subjective - Date & Time of Evaluation Date of Evaluation: 04/10/18 Time of Evaluation: 14:30 - Subjective Subjective: No fevers, not in distress. Objective - Vital Signs/Intake and Output Vital Signs (last 24 hours): Temp Pulse Resp BP Pulse Ox 98.7 F 96 H 22 166/91 H 98 04/09/18 21:50 04/09/18 21:50 04/09/18 21:50 04/09/18 21:50 04/09/18 21:50 Intake and Output: 04/09/18 04/10/18 18:59 06:59 Intake Total 240 Balance 240 - Medications Medications: Current Medications Sodium Chloride (Sodium Chloride 0.9%) 1,000 mls @ 80 mls/hr IV .[id number] [facility] Last Admin: 04/07/18 11:10 Dose: 80 mls/hr Ceftriaxone Sodium (Rocephin 1 Gram Ivpb) 1 gm in 100 mls @ 100 mls/hr IVPB DAILY [facility]; Protocol Last Admin: 04/09/18 11:56 Dose: 100 mls/hr Vancomycin HCl (Vancomycin 1gm) 1 gm in 250 mls @ 167 mls/hr IVPB Q12H [facility]; Protocol Last Admin: 04/09/18 15:30 Dose: 167 mls/hr Lorazepam (Ativan) 0.5 mg IVP Q8H PRN; Protocol PRN Reason: Anxiety Last Admin: 04/09/18 12:53 Dose: 0.5 mg Memantine (Namenda) 10 mg PO BID [facility] Last Admin: 04/09/18 11:56 Dose: 10 mg Risperidone (Risperdal Tab) 0.5 mg PO [facility]; Protocol Last Admin: 04/09/18 21:46 Dose: 0.5 mg - Labs Labs: 04/08/18 07:15 04/08/18 07:15 - Constitutional Appears: Chronically Ill - Head Exam Head Exam: NORMAL INSPECTION - Neck Exam Neck Exam: absent: Meningismus - Respiratory Exam Respiratory Exam: Decreased Breath Sounds - Cardiovascular Exam Cardiovascular Exam: +S1, +S2 - GI/Abdominal Exam GI & Abdominal Exam: Soft. absent: Tenderness Assessment and Plan - Assessment and Plan (Free Text) Plan: Assessment UTI with Enterobacter Vulva sebaceous cyst / abscess, resolved dementia degenerative joint disease hypothyroidism S/P cholecystectomy GERD DM Plan Patient has been switched to Ciprofloxacin and will continue to monitor clinically
--- NOTE | 2018-04-11 12:08 | CP.PCM.PN ---
Subjective - Date & Time of Evaluation Date of Evaluation: 04/11/18 Time of Evaluation: 10:15 - Subjective Subjective: resting comfortably, NAD Objective - Vital Signs/Intake and Output Vital Signs (last 24 hours): Temp Pulse Resp BP Pulse Ox 98 F 98 H 20 134/100 H 98 04/11/18 06:00 04/11/18 06:00 04/11/18 06:00 04/11/18 06:00 04/11/18 06:00 Intake and Output: 04/11/18 04/11/18 06:59 18:59 Intake Total 60 Balance 60 - Medications Medications: Current Medications Lorazepam (Ativan) 0.5 mg IVP Q8H [facility]; Protocol Memantine (Namenda) 10 mg PO BID [facility] Last Admin: 04/10/18 22:52 Dose: 10 mg Risperidone (Risperdal Tab) 0.5 mg PO HS [facility]; Protocol Risperidone (Risperdal Tab) 0.5 mg PO BID [facility]; Protocol - Labs Labs: 04/08/18 07:15 04/08/18 07:15 - Respiratory Exam Respiratory Exam: Clear to Ausculation Bilateral - Cardiovascular Exam Cardiovascular Exam: REGULAR RHYTHM - GI/Abdominal Exam GI & Abdominal Exam: Soft, Normal Bowel Sounds - Extremities Exam Extremities Exam: Normal Inspection - Neurological Exam Neurological Exam: Altered - Skin Skin Exam: Dry, Warm Assessment and Plan (1) Vulvar abscess Status: Resolved (2) Alzheimer's dementia Status: Chronic (3) UTI (urinary tract infection) Status: Acute - Assessment and Plan (Free Text) Plan: continue Cipro PO, psych follow-up for agitation, SW for disposition, may require NH placement
--- NOTE | 2018-04-11 17:39 | PN ---
DATE: 04/11/2018 SUBJECTIVE: The patient was followed up today. The patient was comfortable, deeply sleeping during this junior underwriter's round. As per report, the patient was screaming on top of her lungs. The patient was not agitated, but very confused and disruptive for the milieu of the unit. This junior underwriter suggested adjustment of Ativan. Instead if as needed, this junior underwriter switched the patient to IV push scheduled three times a day 0.5 mg. This junior underwriter increased the dose of Risperdal to three times a day and it seems like the patient is doing a little bit better. In regards of the vital signs, the patient seems to have stable vital signs. Temperature 98, pulse is 98, blood pressure 134/100, respirations 20, oxygen saturation is 98. Medications reviewed. Ativan scheduled, Namenda 10 mg twice a day, Risperdal 0.5 mg twice a day and at the nighttime. Labs reviewed. Microbiology reviewed. Notes reviewed. As per medical team notes, most likely the patient needs to have alf placement. This junior underwriter discussed treatment options with the patient's power of deputy county attorney, son, Javier at the day of admission. MENTAL STATUS EXAMINATION: The patient has delirium stage, has episodes of agitation and aggression. No meaningful conversation possible. IMPRESSION: Delirium on dementia. PLAN: Ativan scheduled, Risperdal was increased to three times a day. As per medical team, most likely the patient required placement. So far, the patient is doing a little bit better. Family involved. Legal documents reviewed. This junior underwriter will follow up on this patient every other day. Should you have any questions , give me a call back. Paola Nova MD
--- NOTE | 2018-04-11 22:26 | PN ---
DATE: 04/11/2018 SUBJECTIVE: The patient is in bed, in no acute distress with nontoxic. The patient was seen earlier this morning. PHYSICAL EXAMINATION: VITAL SIGNS: Temperature is 98, blood pressure is 120/70, respiratory rate 16. HEENT: Unremarkable. NECK: Supple. LUNGS: Have decreased breath sounds. HEART: Normal S1, S2. ABDOMEN: Soft, nontender. LABORATORY DATA: Reveals a white count of 13,800, hemoglobin of 14, platelets of 303. Chemistries are noted. Urinalysis is noted and microbiology reveals urine culture has Enterobacter cloacae species and pansensitive. ASSESSMENT AND PLAN: This is an 82-year-old with Enterobacter urinary tract infection; history of vulvar sebaceous cyst abscess, resolved; dementia; degenerative joint disease; hypothyroidism. On Cipro p.o., had been treated and had been discontinued per Pharmacy. Has resolved. Review of microbiology reveals Enterobacter is sensitive to Cipro. The patient has NO KNOWN ALLERGIES. Urine as the source. We will use p.o. Vantin. Alejo Mancia MD
[2018-04-11] MEDS: Cefpodoxime (Vantin) 200 mg Tab PO SCH (23:07)
[2018-04-12 07:52] VITALS: RESP 20
[2018-04-12] MEDS: Cefpodoxime (Vantin) 200 mg Tab PO SCH ×2 (11:57→22:44)
--- NOTE | 2018-04-12 15:34 | CP.PCM.PN ---
Subjective - Date & Time of Evaluation Date of Evaluation: 04/12/18 Time of Evaluation: 09:35 - Subjective Subjective: resting comfortably, son at bedside, NAD Objective - Vital Signs/Intake and Output Vital Signs (last 24 hours): Temp Pulse Resp BP Pulse Ox 97.8 F 98 H 20 121/100 H 95 04/12/18 07:51 04/12/18 07:51 04/12/18 07:51 04/12/18 07:51 04/12/18 07:51 Intake and Output: 04/12/18 04/12/18 06:59 18:59 Intake Total 120 Balance 120 - Medications Medications: Current Medications Cefpodoxime Proxetil (Vantin) 200 mg PO Q12 [facility]; Protocol Stop: 04/16/18 22:01 Last Admin: 04/12/18 11:57 Dose: 200 mg Diphenhydramine HCl (Benadryl) 50 mg PO Q8 PRN PRN Reason: Itching / Pruritus Lorazepam (Ativan) 0.5 mg IVP Q8H PRN; Protocol PRN Reason: anxiety, restlessness. Memantine (Namenda) 10 mg PO BID [facility] Last Admin: 04/12/18 11:57 Dose: 10 mg Risperidone (Risperdal Tab) 0.5 mg PO HS [facility]; Protocol Last Admin: 04/11/18 23:03 Dose: 0.5 mg Risperidone (Risperdal Tab) 0.5 mg PO BID [facility]; Protocol Last Admin: 04/12/18 11:58 Dose: 0.5 mg - Labs Labs: 04/08/18 07:15 04/08/18 07:15 - Respiratory Exam Respiratory Exam: Clear to Ausculation Bilateral, NORMAL BREATHING PATTERN - Cardiovascular Exam Cardiovascular Exam: REGULAR RHYTHM - GI/Abdominal Exam GI & Abdominal Exam: Soft, Normal Bowel Sounds - Extremities Exam Extremities Exam: Normal Inspection - Neurological Exam Neurological Exam: Altered - Skin Skin Exam: Dry, Warm Assessment and Plan (1) Vulvar abscess Status: Resolved (2) Alzheimer's dementia Status: Chronic (3) UTI (urinary tract infection) Status: Acute - Assessment and Plan (Free Text) Plan: possible discharge to home in am., medically stable
--- NOTE | 2018-04-12 18:23 | PN ---
DATE: 04/12/2018 SUBJECTIVE: The patient is 82-year-old female with reported history of Alzheimer's disease. The patient was admitted on the medical site, status post altered mental status, most likely it is related to delirium due to urinary tract infection. This bond writer was involved into the patient care because of agitation and restless behavior. This bond writer increased the dose of Risperdal. The patient seems to be improving. This bond writer also started Ativan scheduled because the patient was screaming, on top of her voice was disruptive for the therapeutic milieu. More over, the patient was high risk and falls and risk of harming herself. As per the patient's family request, Ativan will be given only as needed, not scheduled. We will respect that decision. The patient's power of project crew worker requested that through the nurse. This bond writer reviewed vital signs. Vital signs seem to be stable. Temperature 97.8, pulse is 98, blood pressure 121/100, respirations 20, and oxygen saturation is 95. The patient was seen and examined. The patient is resting comfortably. At times, the patient is moaning, but not agitated. This patient said how you doing today, which seems to be signs of improvement, but besides that, the patient was not able to hold conversation. Medications reviewed. The patient is on Neurontin, Ativan, Namenda, Risperdal 0.5 mg twice a day and 0.5 mg at the nighttime. Ativan was changed to p.r.n. WBC cells are going down. Most recent was from , there are no new labs. MENTAL STATUS EXAMINATION: As this bond writer described above, the patient was presenting comfortable, moaning. The patient was able to ask this bond writer how he is doing. Insight and judgment seems to be severely impaired. Impulses are better controlled, but still unpredictable. IMPRESSION: Delirium on dementia. The patient has advanced dementia, Alzheimer's type. PLAN: Risperdal was increased to 0.5 mg three times a day. We will continue that. Ativan only as-needed IV push for agitation and aggression. Discussed about treatment plan with the patient's power of project crew worker, Javier, at the day of admission. Thank you very much for letting me participate in care of your patient. We will follow up on this patient every other day. Paola Nova MD cc: MD Keiry
--- NOTE | 2018-04-12 21:55 | PN ---
DATE: 04/12/2018 SUBJECTIVE: The patient is in bed, in no acute distress. PHYSICAL EXAMINATION: VITAL SIGNS: Temperature is 97, blood pressure is 120/100, respiratory rate of 20, heart rate of 98. HEENT: Unremarkable. NECK: Supple. LUNGS: Have decreased breath sounds. HEART: Normal S1, S2. ABDOMEN: Soft, nontender. LABORATORY EXAMINATION: Reveals a white count of 13,800, hemoglobin of 14. BUN of 11, creatinine of 0.7. Urinalysis is noted and microbiology reveals Enterobacter cloacae species, which is pansensitive. Review of orders, that would be in the urine. The patient is on p.o. Vantin. ASSESSMENT AND PLAN: An 82-year-old female with Enterobacter urinary tract infection, history of vulvar sebaceous abscess, resolved, dementia, degenerative joint disease, hypothyroidism, and currently on p.o. Vantin, has written for 5 days. Alejo Mancia MD
[2018-04-13] MEDS: Cefpodoxime (Vantin) 200 mg Tab PO SCH ×3 (10:27→22:51)
--- NOTE | 2018-04-13 13:58 | CP.PCM.PN ---
Subjective - Date & Time of Evaluation Date of Evaluation: 04/13/18 Time of Evaluation: 13:40 - Subjective Subjective: lethargic, not easily arousable, no acute distress Objective - Vital Signs/Intake and Output Vital Signs (last 24 hours): Temp Pulse Resp BP Pulse Ox 97.8 F 98 H 20 127/69 96 04/13/18 06:00 04/13/18 06:00 04/13/18 06:00 04/13/18 06:00 04/13/18 06:00 - Medications Medications: Current Medications Cefpodoxime Proxetil (Vantin) 200 mg PO Q12 [facility]; Protocol Stop: 04/16/18 22:01 Last Admin: 04/13/18 11:00 Dose: Not Given Lorazepam (Ativan) 0.5 mg IVP Q8H PRN; Protocol PRN Reason: anxiety, restlessness. Last Admin: 04/12/18 18:51 Dose: 0.5 mg Memantine (Namenda) 10 mg PO BID [facility]AM Last Admin: 04/13/18 11:00 Dose: Not Given - Labs Labs: 04/08/18 07:15 04/08/18 07:15 - Respiratory Exam Respiratory Exam: Clear to Ausculation Bilateral, NORMAL BREATHING PATTERN - Cardiovascular Exam Cardiovascular Exam: REGULAR RHYTHM - GI/Abdominal Exam GI & Abdominal Exam: Soft, Normal Bowel Sounds - Extremities Exam Extremities Exam: Normal Inspection - Neurological Exam Neurological Exam: Altered - Skin Skin Exam: Dry, Warm Assessment and Plan (1) Vulvar abscess Status: Resolved (2) Alzheimer's dementia Status: Chronic (3) UTI (urinary tract infection) Status: Acute - Assessment and Plan (Free Text) Plan: hold sedation, check labs, SW for DC planning
[2018-04-13 14:26] LABS: BASO # 0.06 K/mm3 (0.0-2.0); BASO % 0.6 % (0.0-3.0); EOS # 1.1 (0.0-0.7); EOS % 10.5 % (1.5-5.0); GRAN # 6.67 (1.4-6.5); GRAN % 66.4 % (50.0-68.0); HEMOGLOBIN 13.3 g/dL (12.0-16.0); LYMPH # 1.6 (1.2-3.4); LYMPH % 15.7 % (22.0-35.0); MEAN CELL VOLUME 76.9 fl (80.0-105.0); MEAN CORPUSCULAR HEMOGLOBIN 25.6 pg (25.0-35.0); MEAN CORPUSCULAR HGB CONC 33.3 g/dl (31.0-37.0); MEAN PLATELET VOLUME 9.4 fl (7.0-11.0); MONO # 0.7 (0.1-0.6); MONO % 6.8 % (1.0-6.0); RBC 5.2 10^6/uL (3.5-6.1); RED CELL DISTRIBUTION WIDTH 15.4 % (11.5-14.5); WHITE BLOOD COUNT 10.1 10^3/ul (4.5-11.0)
[2018-04-13 14:37] LABS: ALB/GLOB RATIO 1.1 (1.1-1.8); ALBUMIN 3.4 g/dL (3.0-4.8); ALT/SGPT 26 U/L (7-56); AST/SGOT 28 U/L (14-36); BLOOD UREA NITROGEN 17 mg/dL (7-21); CALCIUM 9.3 mg/dL (8.4-10.5); GFR NON-AFRICAN AMERICAN > 60
[2018-04-13 14:48] LABS: TROPONIN I 0.01 ng/mL
[2018-04-13] MEDS ORDERED: Potassium Chloride 20 mEq ER Tab PO ONE (20:30)
--- NOTE | 2018-04-14 02:31 | PN ---
DATE: 04/13/2018 SUBJECTIVE: The patient is in bed, in no acute distress, nontoxic PHYSICAL EXAMINATION: VITAL SIGNS: Temperature is 97, blood pressure is 120/60, respiratory rate of 18. HEENT: Unremarkable. NECK: Supple. LUNGS: Have decreased breath sounds. HEART: Normal S1, S2. ABDOMEN: Soft, nontender. LABORATORY EXAMINATION: Reveals a white count of 10,000, hemoglobin of 13, platelets of 285. Chemistries reveals a BUN of 17. Creatinine is 0.6. Microbiology is noted. Urine cultures, Enterobacter cloacae. The blood cultures, no growth. Review of orders reveals the patient to be on cefpodoxime. ASSESSMENT AND PLAN: An 82-year-old female with Enterobacter urinary tract infection; history of vulvar sebaceous cyst, resolved; and dementia; degenerative joint disease, currently on p.o. Vantin, complete 5 days duration. Alejo Mancia MD
--- NOTE | 2018-04-14 09:39 | CP.PCM.PN ---
Subjective - Date & Time of Evaluation Date of Evaluation: 04/14/18 Time of Evaluation: 09:30 - Subjective Subjective: somewhat less lethargic this am, no chest pain, no SOB Objective - Vital Signs/Intake and Output Vital Signs (last 24 hours): Temp Pulse Resp BP Pulse Ox 97.8 F 98 H 20 127/69 96 04/13/18 06:00 04/13/18 06:00 04/13/18 06:00 04/13/18 06:00 04/13/18 06:00 - Medications Medications: Current Medications Cefpodoxime Proxetil (Vantin) 200 mg PO Q12 [facility]; Protocol Stop: 04/16/18 22:01 Last Admin: 04/13/18 22:51 Dose: 200 mg Memantine (Namenda) 10 mg PO BID [facility] Last Admin: 04/13/18 18:05 Dose: 10 mg Potassium Chloride (K-Dur 20 Meq Er Tab) 20 meq PO BRK [facility] - Labs Labs: 04/13/18 14:15 04/13/18 14:15 - Respiratory Exam Respiratory Exam: Clear to Ausculation Bilateral, NORMAL BREATHING PATTERN - Cardiovascular Exam Cardiovascular Exam: REGULAR RHYTHM - GI/Abdominal Exam GI & Abdominal Exam: Soft, Normal Bowel Sounds - Extremities Exam Extremities Exam: Normal Inspection - Neurological Exam Neurological Exam: Altered - Skin Skin Exam: Dry, Warm Assessment and Plan (1) Vulvar abscess Status: Resolved (2) Alzheimer's dementia Status: Chronic (3) UTI (urinary tract infection) Status: Acute (4) Hypokalemia Status: Acute - Assessment and Plan (Free Text) Plan: neuroleptics on hold, pt more awake, potassium supplements ordered
[2018-04-14] MEDS ORDERED: Potassium Chloride 20 mEq ER Tab PO SCH (09:45)
[2018-04-14] MEDS: Cefpodoxime (Vantin) 200 mg Tab PO SCH (09:51)
[2018-04-14 10:34] LABS: ALB/GLOB RATIO 1.1 (1.1-1.8); ALBUMIN 3.7 g/dL (3.0-4.8); ALT/SGPT 27 U/L (7-56); AST/SGOT 33 U/L (14-36); BLOOD UREA NITROGEN 17 mg/dL (7-21); CALCIUM 9.4 mg/dL (8.4-10.5); GFR NON-AFRICAN AMERICAN > 60
[2018-04-14 10:50] VITALS: BP 130/64; PULSE 89; TEMP 98.3; O2SAT 100
--- NOTE | 2018-04-15 00:55 | PN ---
DATE: 04/14/2018 SUBJECTIVE: Patient was seen earlier today in 577, bed 1. No fevers. No chills. No nausea. PHYSICAL EXAMINATION: VITAL SIGNS: Temperature is 98, blood pressure is 130/60, respiratory rate of 18. HEENT: Unremarkable. NECK: Supple. LUNGS: Have decreased breath sounds. HEART: Normal S1 and S2. ABDOMEN: Soft. LABORATORY EXAMINATION: Reveals a white count of 10,000. Chemistries are noted. Urinalysis is reviewed. Microbiology is reviewed, Enterobacter cloacae in the urine. ASSESSMENT AND PLAN: This is an 82-year-old female with Enterobacter urinary tract infection; history of vulvar sebaceous cyst, resolved; dementia; degenerative joint disease. On p.o. Vantin, complete 5 days duration. Alejo Mancia MD
== END 2018-04-14 16:21 | disposition home or self-care (01) | DRG 690 ==
LOC: ED 15:10 → ERH 18:53 → 5RSO 23:18
PROVIDERS: ADMIT Internal Medicine; ATTEND Internal Medicine
DX: N39.0 Urinary tract infection, site not specified (principal); N76.4 Abscess of vulva; F02.81 Dementia in other diseases classified elsewhere, unspecified severity, with behavioral disturbance; F05 Delirium due to known physiological condition; G30.9 Alzheimer's disease, unspecified; N94.89 Other specified conditions associated with female genital organs and menstrual cycle; E11.9 Type 2 diabetes mellitus without complications; E03.9 Hypothyroidism, unspecified; R32 Unspecified urinary incontinence; K21.9 Gastro-esophageal reflux disease without esophagitis; Z74.01 Bed confinement status; R45.1 Restlessness and agitation; E87.6 Hypokalemia; B96.89 Other specified bacterial agents as the cause of diseases classified elsewhere; F41.9 Anxiety disorder, unspecified; M19.90 Unspecified osteoarthritis, unspecified site; Z90.710 Acquired absence of both cervix and uterus; Z90.49 Acquired absence of other specified parts of digestive tract